=== PATIENT | female | born 1995 | race Caucasian/White ===

== ENCOUNTER 2018-03-15 21:00 | Emergency (ER) | payer SELFPAY ==
[2018-03-15 21:11] VITALS: BMI 27.4
--- NOTE | 2018-03-15 21:16 | ED PDOC ---
Arrival/HPI - General Time Seen by Provider: 03/15/18 21:04 Historian: Patient, Parent - History of Present Illness Narrative History of Present Illness (Text): 03/15/18 21:12 22 year old female, whose past medical history includes bipolar disorder, presents to the Emergency department by EMS for Suicidal Ideation for the past week. As per mother, patient was recently in [place] and was fine, but once she left she began feeling depressed due to relationship issues with her boyfriend. Mother states patient reportedly said multiple times that she wanted to kill herself. Patient denies any fevers, chills, nausea, vomiting, diarrhea, back pain, neck pain, urinary symptoms, headache, dizziness, homicidal Ideation, auditory/visual hallucinations, or any other complaint. Concreting Supervisor: Dr. Lauren Lyons Time/Duration: 1 week Symptom Onset: Gradual Symptom Course: Unchanged Context: Home Past Medical History - Provider Review Nursing Documentation Reviewed: Yes - Travel History Have you recently traveled outside US w/in the past 3 mons?: Yes Family/Social History - Physician Review Nursing Documentation Reviewed: Yes Family/Social History: No Known Family HX Allergies/Home Meds Allergies/Adverse Reactions: Allergies No Known Allergies Allergy (Verified 03/15/18 21:10) Home Medications: Home Meds Medication Instructions Recorded Confirmed Aripiprazole [Abilify] 30 mg PO DAILY 03/15/18 03/15/18 Benztropine Mesylate 0.5 mg PO BID 03/15/18 03/15/18 lamoTRIgine [LaMICtal] 2 tab PO DAILY 03/15/18 03/15/18 Review of Systems - Physician Review All systems were reviewed & negative as marked: Yes - Review of Systems Constitutional: absent: Fevers, Other ([place]) Gastrointestinal: absent: Diarrhea, Nausea, Vomiting Genitourinary Female: absent: Dysuria, Frequency, Hematuria Musculoskeletal: absent: Back Pain, Neck Pain Neurological: absent: Headache, Dizziness Psychiatric: Suicidal Ideation. absent: Other (homicidal Ideation, auditory/ visual hallucinations) Physical Exam Vital Signs Reviewed: Yes Vital Signs Temp Pulse Resp BP Pulse Ox 03/15/18 23:03 69 18 105/63 98 03/15/18 21:53 98.3 F 91 H 15 98 03/15/18 21:13 98 H 24 98 Temperature: Afebrile Pulse: Regular Respiratory Rate: Normal Appearance: Positive for: Well-Appearing, Non-Toxic Pain Distress: None Mental Status: Positive for: Alert and Oriented X 3 Finger Stick Blood Glucose: 72 - Systems Exam Head: Present: Atraumatic, Normocephalic Pupils: Present: PERRL Extroacular Muscles: Present: EOMI Conjunctiva: Present: Normal Mouth: Present: Moist Mucous Membranes Neck: Present: Normal Range of Motion Respiratory/Chest: Present: Clear to Auscultation, Good Air Exchange. No: Respiratory Distress, Accessory Muscle Use Cardiovascular: Present: Regular Rate and Rhythm, Normal S1, S2. No: Murmurs Abdomen: No: Tenderness, Distention, Peritoneal Signs Back: Present: Normal Inspection Upper Extremity: Present: Normal Inspection. No: Cyanosis, Edema Lower Extremity: Present: Normal Inspection. No: Edema Neurological: Present: GCS=15, CN II-XII Intact, Speech Normal Skin: Present: Warm, Dry, Normal Color. No: Rashes Psychiatric: Present: Alert, Oriented x 3, Normal Insight, Normal Concentration , Other (Flat Affect). No: Normal Affect Medical Decision Making ED Course and Treatment: 03/15/18 21:12 Impression: 22 year old female presents for Suicidal Ideation for the past week. Plan: -- EKG -- Labs -- Chest X-ray -- Urinalysis, HCG, Qualit Urine. -- Reassess and disposition Progress Notes: 03/15/18 21:40 EKG shows NSR at 86 BPM. Normal EKG. Interpreted by me. 03/16/18 02:40 CXR Impression: As read by me, no acute process. 03/16/18 02:45 Patient was seen and evaluated by PES. Cleared by PES for discharge. Patient in agreement to follow up with [facility]. On re-evaluation, patient feels better and is in no acute distress. I have discussed the results and plan with the patient, who expresses understanding. Patient in agreement with plan to be discharged home. Patient is stable for discharge. Patient was instructed to follow up with physician or return if symptoms worsen or new concerning symptoms arise. - Lab Interpretations Lab Results: 03/15/18 21:25 03/15/18 21:25 Lab Results 03/15/18 23:30: Urine Opiates Screen Negative, Urine Methadone Screen Negative, Ur Barbiturates Screen Negative, Ur Phencyclidine Scrn Negative, Ur Amphetamines Screen Negative, U Benzodiazepines Scrn Negative, U Oth Cocaine Metabols Negative, U Cannabinoids Screen Negative 03/15/18 23:30: Urine Color Yellow, Urine Appearance Clear, Urine pH 6.5, Ur Specific [place] 1.025, Urine Protein Negative, Urine Glucose (UA) Negative, Urine Ketones Negative, Urine Blood Negative, Urine Nitrate Negative, Urine Bilirubin Negative, Urine Urobilinogen 0.2, Ur Leukocyte Esterase Trace H, Urine RBC 0 - 2, Urine WBC 1 - 3, Ur Epithelial Cells 4 - 5, Urine Bacteria Trace, Urine HCG, Qual Negative 03/15/18 21:25: Alcohol, Quantitative < 10 03/15/18 21:25: WBC 4.0 L, RBC 5.29, Hgb 12.7, Hct 39.8, MCV 75.2 L, MCH 24.0 L , MCHC 31.9, RDW 14.0, Plt Count 212, MPV 11.2 H 03/15/18 21:25: Sodium 143, Potassium 4.0, Chloride 104, Carbon Dioxide 26, Anion Gap 17, BUN 12, Creatinine 0.8, Est GFR ( Amer) > 60, Est GFR (Non- Af Amer) > 60, Random Glucose 83, Calcium 9.4, Total Bilirubin 0.4, AST 39 H, ALT 60 H, Alkaline Phosphatase 92, Total Protein 8.7 H, Albumin 4.2, Globulin 4.5, Albumin/Globulin Ratio 0.9 L 03/15/18 21:05: POC Glucose (mg/dL) 72 I have reviewed the lab results: Yes - RAD Interpretation Radiology Orders: 03/15/18 21:11 CHEST PORTABLE [RAD] Stat - EKG Interpretation Interpreted by ED Physician: Yes Type: 12 lead EKG - Medication Orders Current Medication Orders: Discontinued Medications Acetaminophen (Tylenol 325mg Tab) 650 mg PO STAT STA Stop: 03/15/18 23:15 Last Admin: 03/15/18 23:25 Dose: 650 mg - Scribe Statement The provider has reviewed the documentation as recorded by the Gonzalez Archer Provider Maritzaibe Attestation: All medical record entries made by the Gonzalez were at my direction and personally dictated by me. I have reviewed the chart and agree that the record accurately reflects my personal performance of the history, physical exam, medical decision making, and the department course for this patient. I have also personally directed, reviewed, and agree with the discharge instructions and disposition. Disposition/Present on Arrival - Present on Arrival Any Indicators Present on Arrival: No - Disposition Have Diagnosis and Disposition been Completed?: Yes Diagnosis: Depression Disposition: HOME/ ROUTINE Disposition Time: 02:43 Patient Plan: Discharge Patient Problems: Current Active Problems Problem Status Onset Depression Acute Condition: GOOD Discharge Instructions (ExitCare): Depression, Adult (DC) Additional Instructions: Follow up at [facility]. Referrals: [facility] - Follow up with primary
[2018-03-15 21:48] LABS: HEMOGLOBIN 12.7 g/dL (12.0-16.0); MEAN CELL VOLUME 75.2 fl (80.0-105.0); MEAN CORPUSCULAR HGB CONC 31.9 g/dl (31.0-37.0); MEAN PLATELET VOLUME 11.2 fl (7.0-11.0); RBC 5.29 10^6/uL (3.5-6.1)
[2018-03-15 21:53] LABS: ALB/GLOB RATIO 0.9 (1.1-1.8); ALBUMIN 4.2 g/dL (3.0-4.8); ALT/SGPT 60 U/L (7-56); AST/SGOT 39 U/L (14-36); BLOOD UREA NITROGEN 12 mg/dL (7-21); CALCIUM 9.4 mg/dL (8.4-10.5); GFR AFRICAN-AMERICAN > 60; GFR NON-AFRICAN AMERICAN > 60
[2018-03-15 22:00] VITALS: TEMP 98.3
[2018-03-15 23:57] LABS: PH,URINE 6.5 (4.7-8.0); URINE BILIRUBIN NEGATIVE (NEGATIVE); URINE BLOOD NEGATIVE (NEGATIVE); URINE GLUCOSE (UA) NEGATIVE (NEGATIVE); URINE LEUKOCYTE ESTERASE TRACE Leu/uL (NEGATIVE); URINE PROTEIN NEGATIVE mg/dL (<30 mg/dL); URINE UROBILINOGEN 0.2 E.U./dL (<1 E.U./dL)
[2018-03-16 00:03] LABS: HCG,QUALITATIVE URINE NEGATIVE (NEGATIVE); URINE APPEARANCE CLEAR (CLEAR); URINE COLOR YELLOW (YELLOW)
[2018-03-16 00:11] LABS: URINE BACTERIA TRACE (NEG); URINE RBC 0 - 2 /hpf (0-2)
[2018-03-16 00:30] LABS: BARBITURATES, UR NEGATIVE (NEGATIVE); BENZODIAZEPINES, UR NEGATIVE (NEGATIVE); OPIATES, UR NEGATIVE (NEGATIVE); PHENCYCLIDINE, UR NEGATIVE (NEGATIVE)
[2018-03-16 03:06] VITALS: BP 124/70; PULSE 69; RESP 12
[2018-03-16 03:07] VITALS: O2SAT 100
--- NOTE | 2018-03-16 08:04 | RAD ---
Date of service: 03/16/2018 HISTORY: medical clearance COMPARISON: No prior. FINDINGS: LUNGS: No active pulmonary disease. PLEURA: No significant pleural effusion identified, no pneumothorax apparent. CARDIOVASCULAR: Normal. OSSEOUS STRUCTURES: No significant abnormalities. VISUALIZED UPPER ABDOMEN: Normal. OTHER FINDINGS: None. IMPRESSION: No active disease.
--- NOTE | 2018-03-16 09:46 | CARD ---
APPROVED REPORT Date of service: 03/15/2018 EKG Measurement Heart [id number] ID [id number] <Conclusion> Normal sinus rhythm Normal ECG
== END 2018-03-16 03:04 | disposition home or self-care (01) ==
LOC: ED 21:00
DX: F32.9 Major depressive disorder, single episode, unspecified (principal)
CPT/HCPCS: 71045; 80053; 81001; 82948; 84703; 85027; 87086; 90791; 93005; 99285; G0480

== ENCOUNTER 2018-10-06 23:39 | Inpatient (IN) | payer MEDICAID, OTHER ==
[2018-10-06 23:52] VITALS: BMI 26.6
[2018-10-07] MEDS ORDERED: Sodium Chloride 0.9% 1,000 ML IV STA (00:04)
--- NOTE | 2018-10-07 00:16 | ED PDOC ---
Arrival/HPI - General Historian: Patient - History of Present Illness Narrative History of Present Illness (Text): 10/07/18 00:13 23-year-old female with a history of bipolar disorder and history of "seizures" presents today for psychiatric evaluation. Per family member the patient was talking on the phone and got into an argument with her boyfriend and had a "seizure". Patient states that she was watching a video on her phone and suddenly began to feel a tightness in the chest and it was going throughout her entire body. patient states she then felt as if she stiffened up. Patient states she then felt like her body was shaking. Patients mother states that she saw this happen and called 911. Patient states this is happened multiple times in the past and after these events occur she has a lot more energy than she normally would have. Patient denies headache dizziness or weakness. Denies chest pain or shortness of breath. Denies abdominal pain. No nausea or vomiting. Patient denies recent illness. Patient states she was seen by her psychiatrist yesterday and was told that she needed to have ECT treatments again. Patient states these treatments have helped her in the past. Patient denies suicidal or homicidal ideation. No other complaints Time/Duration: 1 hour <Alisha Terry - Last Filed: 10/07/18 01:47> <Ruperto Mccord - Last Filed: 10/07/18 03:45> - General Chief Complaint: Psychiatric Evaluation Time Seen by Provider: 10/06/18 23:52 Past Medical History - Provider Review Nursing Documentation Reviewed: Yes - Travel History Have you recently traveled outside [place] w/in the past 3 mons?: No - Tetanus Immunization Tetanus Immunization: Unknown - Cardiac Hx Cardiac Disorders: No Hx Hypertension: No - Pulmonary Hx Tuberculosis: No - Neurological HX Cerebrovascular Accident: No Hx Seizures: Yes - Endocrine/Metabolic Hx Endocrine Disorders: Yes Hx Diabetes Mellitus Type 2: Yes - Hematological/Oncological Hx Cancer: No - Genitourinary/Gynecological Hx Sexually Transmitted Diseases: No - Psychiatric Hx Psychophysiologic Disorder: Yes Hx Bipolar Disorder: Yes (7 years) Hx Depression: Yes Hx Substance Use: No (denies) - Anesthesia Hx Anesthesia: No <Alisha Terry - Last Filed: 10/07/18 01:47> Family/Social History - Physician Review Nursing Documentation Reviewed: Yes Family/Social History: Unknown Family HX Smoking Status: Unknown If Ever Smoked Hx Alcohol Use: No (denies) Hx Substance Use: No (denies) <Alisha Terry - Last Filed: 10/07/18 01:47> Allergies/Home Meds <Alisha Terry - Last Filed: 10/07/18 01:47> <YayaRuperto - Last Filed: 10/07/18 03:45> Allergies/Adverse Reactions: Allergies No Known Allergies Allergy (Verified 03/15/18 21:10) Home Medications: Home Meds Medication Instructions Recorded Confirmed Aripiprazole [Abilify] 30 mg PO DAILY 03/15/18 03/15/18 Benztropine Mesylate 0.5 mg PO BID 03/15/18 03/15/18 lamoTRIgine [LaMICtal] 2 tab PO DAILY 03/15/18 03/15/18 Review of Systems - Review of Systems Constitutional: absent: Fatigue, Fevers ENT: absent: Sore Throat, Sinus Congestion Respiratory: absent: SOB, Cough Cardiovascular: absent: Chest Pain, Palpitations Gastrointestinal: absent: Abdominal Pain, Constipation, Diarrhea, Nausea, Vomiting Genitourinary Female: absent: Dysuria, Frequency, Hematuria Musculoskeletal: absent: Arthralgias, Back Pain, Neck Pain Skin: absent: Rash, Pruritis Neurological: absent: Headache, Dizziness Psychiatric: Other (hx of bipolar disorder). absent: Suicidal Ideation <Alisha Terry - Last Filed: 10/07/18 01:47> Physical Exam Vital Signs Reviewed: Yes Vital Signs Temp Pulse Resp BP Pulse Ox 10/06/18 23:48 98.6 F 77 18 139/79 98 Temperature: Afebrile Blood Pressure: Normal Pulse: Regular Respiratory Rate: Normal Appearance: Positive for: Well-Appearing, Non-Toxic, Comfortable Pain Distress: None Mental Status: Positive for: Alert and Oriented X 3 Finger Stick Blood Glucose: 99 - Systems Exam Head: Present: Atraumatic Pupils: Present: PERRL Extroacular Muscles: Present: EOMI Conjunctiva: Present: Normal Mouth: Present: Moist Mucous Membranes Neck: Present: Normal Range of Motion, Trachea Midline. No: MIDLINE TENDERNESS, Paraspinal Tenderness Respiratory/Chest: Present: Clear to Auscultation, Good Air Exchange. No: Respiratory Distress, Accessory Muscle Use Cardiovascular: Present: Regular Rate and Rhythm, Normal S1, S2. No: Murmurs Abdomen: No: Tenderness, Distention, Rebound, Guarding Upper Extremity: Present: Normal ROM Lower Extremity: Present: Normal ROM Neurological: Present: GCS=15, Speech Normal Skin: Present: Warm, Dry, Normal Color. No: Rashes Psychiatric: Present: Alert, Oriented x 3 <Alisha Terry - Last Filed: 10/07/18 01:47> Vital Signs Temp Pulse Resp BP Pulse Ox 10/06/18 23:48 98.6 F 77 18 139/79 98 <Ruperto Mccord - Last Filed: 10/07/18 03:45> Medical Decision Making ED Course and Treatment: 10/07/18 00:51 Patient is nontoxic well-appearing in no distress vital signs are stable. pt claims to have had a seizure, but is alert and oriented without postictal state. pt is alert and oriented and the Patient was able to identify each symptom as it progressed during her "seizure". PT is requesting to speak to a psychiatrist. There is a question of whether this patient has a hx of seizures or is on carbamazepine for psychosis/Bipolar disorder. Patient states she has never seen a neurologist and her psychiatrist gives her the prescription for carbamazepine. CBC WNL CMP WNL Tylenol WNL Salicylate WNL Alcohol level WNL Urine drug screen wnl UA; wnl cxr: wnl ekg: Normal sinus rhythm at 80 bpm normal axis normal intervals no ST elevations Head CT; pending pt is medically cleared for PES evaluation Patient was seen and evaluated by PES screener: oskar 10/07/18 01:43 case signed out to dr. mccord pending PES eval/ ct results and disposition. - RAD Interpretation Radiology Orders: 10/07/18 00:04 HEAD W/O CONTRAST [CT] Stat 10/07/18 00:05 CHEST PORTABLE [RAD] Stat - Medication Orders Current Medication Orders: Sodium Chloride (Sodium Chloride 0.9%) 1,000 mls @ 999 mls/hr IV .Q1H1M STA Stop: 10/07/18 01:04 <Alisha Terry - Last Filed: 10/07/18 01:47> ED Course and Treatment: 10/07/18 02:23 CT Head: Normal size of the ventricles and extra-axial spaces for the patient's age. Normal white matter tracts of the supratentorial brain. Normal basal ganglia and thalami. Normal brainstem. Normal cerebellum. There is no demonstrated extra-axial, intraparenchymal, or intraventricular hemorrhage. There are no findings of an acute ischemic infarction. Normal calvarium. There is no demonstrated fracture. Normal soft tissue structures. Mild chronic mucosal inflammatory changes of the maxillary sinuses and ethmoid air cells. Normal remaining visualized paranasal sinuses. IMPRESSION: Normal unenhanced CT scan of the brain. Electronically signed on Oct 07, 2018 2:20:01 AM EST by: Susu Agarwal M.D., Certified by ABR, MSK, Neuroradiology 10/07/18 03:42 Pt seen and evaluated by JORDI Camacho, who discussed case with psychiatrist alternative medicine practitioner. [facility] for bipolar disorder under Dr. Tilley's service. - Lab Interpretations Lab Results: Total Bilirubin 0.2 mg/dL (0.2-1.3) 10/07/18 00:26 AST 24 U/L (14-36) 10/07/18 00:26 ALT 24 U/L (7-56) 10/07/18 00:26 Alkaline Phosphatase 80 U/L (38-126) 10/07/18 00:26 Total Protein 7.8 g/dL (5.8-8.3) 10/07/18 00:26 Albumin 3.9 g/dL (3.0-4.8) 10/07/18 00:26 Globulin 3.9 gm/dL 10/07/18 00:26 Albumin/Globulin Ratio 1.0 (1.1-1.8) L 10/07/18 00:26 Urine Color Yellow (YELLOW) 10/07/18 00:26 Urine Appearance Clear (CLEAR) 10/07/18 00:26 Urine pH 7.5 (4.7-8.0) 10/07/18 00:26 Ur Specific [place] 1.025 (1.005-1.035) 10/07/18 00:26 Urine Protein Negative mg/dL (<30 mg/dL) 10/07/18 00:26 Urine Glucose (UA) Negative mg/dL (NEGATIVE) 10/07/18 00:26 Urine Ketones Negative mg/dL (NEGATIVE) 10/07/18 00:26 Urine Blood Negative (NEGATIVE) 10/07/18 00:26 Urine Nitrate Negative (NEGATIVE) 10/07/18 00:26 Urine Bilirubin Negative (NEGATIVE) 10/07/18 00:26 Urine Urobilinogen 0.2 E.U./dL (<1 E.U./dL) 10/07/18 00:26 Ur Leukocyte Esterase Negative E[place]/uL (NEGATIVE) 10/07/18 00:26 - RAD Interpretation Radiology Orders: 10/07/18 00:04 HEAD W/O CONTRAST [CT] Stat 10/07/18 00:05 CHEST PORTABLE [RAD] Stat Barrel Cleaner: Radiologist - Medication Orders Current Medication Orders: Discontinued Medications Sodium Chloride (Sodium Chloride 0.9%) 1,000 mls @ 999 mls/hr IV .Q1H1M STA Stop: 10/07/18 01:04 Last Admin: 10/07/18 00:30 Dose: 999 mls/hr eMAR Start Stop Document 10/07/18 00:30 AD (Rec: 10/07/18 01:41 AD [id number]) Intravenous Solution Start Date 10/07/18 Start Time 00:30 <Ruperto Mccord - Last Filed: 10/07/18 03:45> - PA / HAND ROLLER ENGRAVER / Resident Statement GREGORY has reviewed & agrees with the documentation as recorded. GREGORY has examined the patient and agrees with the treatment plan. <Ruperto Mccord - Last Filed: 10/07/18 03:45> Disposition/Present on Arrival - Present on Arrival Any Indicators Present on Arrival: No History of DVT/PE: No History of Uncontrolled Diabetes: No Urinary Catheter: No History of Decub. Ulcer: No History Surgical Site Infection Following: None - Disposition Have Diagnosis and Disposition been Completed?: Yes Disposition Time: 01:43 <Alisha Terry - Last Filed: 10/07/18 01:47> - Present on Arrival Any Indicators Present on Arrival: No History of DVT/PE: No History of Uncontrolled Diabetes: No Urinary Catheter: No History of Decub. Ulcer: No History Surgical Site Infection Following: None - Disposition Have Diagnosis and Disposition been Completed?: Yes Disposition Time: 03:45 Patient Plan: Admission <Ruperto Mccord - Last Filed: 10/07/18 03:45> - Disposition Diagnosis: Bipolar disorder Disposition: HOSPITALIZED Patient Problems: Current Active Problems Problem Status Onset Bipolar disorder Acute Condition: STABLE Referrals: Ash Mccain [Primary Care Provider] - Follow up with primary Forms: [employer] (Bulgarian)
[2018-10-07 00:35] LABS: BASO # 0.03 K/mm3 (0.0-2.0); BASO % 0.4 % (0.0-3.0); EOS # 0.3 (0.0-0.7); HEMOGLOBIN 12.1 g/dL (12.0-16.0); LYMPH # 2.5 (1.2-3.4); LYMPH % 29.2 % (22.0-35.0); MEAN CORPUSCULAR HEMOGLOBIN 24.6 pg (25.0-35.0); MEAN CORPUSCULAR HGB CONC 30.9 g/dl (31.0-37.0); MEAN PLATELET VOLUME 10.9 fl (7.0-11.0); MONO # 0.5 (0.1-0.6); MONO % 5.4 % (1.0-6.0); RBC 4.92 10^6/uL (3.5-6.1); RED CELL DISTRIBUTION WIDTH 13.6 % (11.5-14.5); WHITE BLOOD COUNT 8.5 10^3/uL (4.5-11.0)
[2018-10-07 00:48] LABS: MEAN CELL VOLUME 79.7 fl (80.0-105.0)
[2018-10-07 00:50] LABS: PH,URINE 7.5 (4.7-8.0); URINE BILIRUBIN NEGATIVE (NEGATIVE); URINE BLOOD NEGATIVE (NEGATIVE); URINE GLUCOSE (UA) NEGATIVE (NEGATIVE); URINE LEUKOCYTE ESTERASE NEGATIVE Leu/uL (NEGATIVE); URINE PROTEIN NEGATIVE mg/dL (<30 mg/dL); URINE UROBILINOGEN 0.2 E.U./dL (<1 E.U./dL)
[2018-10-07 00:51] LABS: URINE APPEARANCE CLEAR (CLEAR); URINE COLOR YELLOW (YELLOW)
[2018-10-07 00:53] LABS: ACETAMINOPHEN < 10.0 ug/ml (10.0-20.0); SALICYLATE < 1 mg/dL (2.0-20.0)
[2018-10-07 00:55] LABS: ALBUMIN 3.9 g/dL (3.0-4.8); ALT/SGPT 24 U/L (7-56); AST/SGOT 24 U/L (14-36); BLOOD UREA NITROGEN 13 mg/dL (7-21); CALCIUM 9.1 mg/dL (8.4-10.5); GFR NON-AFRICAN AMERICAN > 60
[2018-10-07 01:30] LABS: BARBITURATES, UR NEGATIVE (NEGATIVE); BENZODIAZEPINES, UR NEGATIVE (NEGATIVE); OPIATES, UR NEGATIVE (NEGATIVE); PHENCYCLIDINE, UR NEGATIVE (NEGATIVE)
[2018-10-07] MEDS ORDERED: Magnesium Hydroxide Susp 30 ml UD PO PRN (04:41)
[2018-10-07] MEDS ORDERED: Alum-Mag Hydrox-Simethicone Susp (30 mL) PO PRN (04:41)
[2018-10-07 06:16] VITALS: O2SAT 100
--- NOTE | 2018-10-07 06:47 | PCM.BM ---
<Gabriel Kimball C - Last Filed: 10/07/18 06:44> Treatment Plan Problems - Problems identified on initial assessmt INEFFECTIVE COPING Date Initiated: 10/07/18 Time Initiated: 06:00 Assessment reference: NA Status: Active Priority: 1 ALTERED SLEEPING PATTERN Date Initiated: 10/07/18 Time Initiated: 06:00 Assessment reference: NA Status: Active Priority: 2 AGITATED BEHAVIOR Date Initiated: 10/07/18 Time Initiated: 06:00 Assessment reference: NA Status: Active Priority: 3 Treatment assets and liabiliti Patient Assests: educated, self-reliant, ADL independent, good support system, negotiates basic needs, financial stabiity, cognitively intact Patient Liabilities: relationship conflicts, medical problems - Milieu Protocol Maintain good personal hygiene: every other day Encourage regular showers, every shift Remind patient to perform daily oral care, every shift Assist patient to perform ADL's Maintain personal safety: daily Monitor environment for contraband/sharps, every other day Educate patient to report safety concerns to staff, every other day Monitor environment for contraband/sharps Medication safety: Monitor for expected outcome, potential side effects: every other day, Assess barriers to learning: every other day, Assess readiness for medication education: every other day Family Contact Family involvement: Family/SO is involved Family contact: Patient agrees to contact Discharge/Continuing Care - Education Needs Education Needs: Patient Medication, Patient Diagnosis/Disease Process, Patient Coping Skills, Patient Uses of Medical Equipment, Patient Health Practices/Safety - Discharge Discharge Criteria: Tolerates medication w/o severe side effects, Free of Suicidal thoughts, Free of agitation, Normal sleep pattern <Maty Tilley A - Last Filed: 10/07/18 14:34> - Diagnosis (1) Bipolar disorder Status: Acute Interventions: 10/07/18 14:34 Psychoeducation Psychopharmacology/adjustment of medications as needed/ monitoring possible side effects Monitor blood level of mood stabilizers Evaluate pt on daily basis Compliance with medications and follow up appointments Suicide and homicide risk assessment and prevention, coping strategies, safety plan Relapse prevention Reduction of symptoms Improve functional status Family involvement As outpatient: cognitive behavioral therapy ECT possible <Lakesha Lopez Y - Last Filed: 10/08/18 11:50> Family Contact Family contact: Patient agrees to contact Family contact name: Ruddy Quintero([phone]) mother Family contacted how many times per week?: 2 <Lizeth Roldan - Last Filed: 10/08/18 15:55>
--- NOTE | 2018-10-07 08:36 | CT ---
Date of service: 10/07/2018 PROCEDURE: CT HEAD WITHOUT CONTRAST. HISTORY: hx of seizures/ ? seizure at home COMPARISON: None available. TECHNIQUE: Axial computed tomography images were obtained through the head/brain without intravenous contrast. Radiation dose: Total exam DLP = 803.84 mGy-cm. This CT exam was performed using one or more of the following dose reduction techniques: Automated exposure control, adjustment of the mA and/or kV according to patient size, and/or use of iterative reconstruction technique. FINDINGS: HEMORRHAGE: No intracranial hemorrhage. BRAIN: No mass effect or edema. No atrophy or chronic microvascular ischemic changes. VENTRICLES: Unremarkable. No hydrocephalus. CALVARIUM: Unremarkable. PARANASAL SINUSES: Minimal chronic ethmoid sinusitis. MASTOID AIR CELLS: Unremarkable as visualized. No inflammatory changes. OTHER FINDINGS: None. IMPRESSION: No intracranial mass, hemorrhage or evidence of acute infarct. Minimal chronic ethmoid sinusitis. Otherwise unremarkable examination The preliminary findings for this examination were reported by [facility] Radiology at 2:20 a.m. on 10/07/2018. There is concurrence of this report with the preliminary findings.
[2018-10-07 08:47] LABS: GLUCOSE,FASTING 90 mg/dL (65-110); HDL CHOLESTEROL 32 mg/dL (29-60)
[2018-10-07 08:58] LABS: LDL CHOLESTEROL 84 mg/dL (0-129)
--- NOTE | 2018-10-07 10:14 | RAD ---
Date of service: 10/07/2018 HISTORY: Pes eval COMPARISON: 03/16/2018 FINDINGS: LUNGS: No active pulmonary disease. PLEURA: No significant pleural effusion identified, no pneumothorax apparent. CARDIOVASCULAR: No aortic atherosclerotic calcification present. Normal cardiac size. No pulmonary vascular congestion. OSSEOUS STRUCTURES: No significant abnormalities. VISUALIZED UPPER ABDOMEN: Normal. OTHER FINDINGS: None. IMPRESSION: No active disease.
--- NOTE | 2018-10-07 14:30 | PCM.PSYCH ---
Initial Psychiatric Evaluation - Initial Psychiatric Evaluation Type of Admission: Voluntary Legal Status: Capacity (Patient has a capacity to sign consent for treatment) Chief Complaint (in patient's own words): "I do not want to be here, you have to discharge me immediately, transfer me on the medical floor...." Patient's Reaction to Hospitalization: Patient was admitted to the psychiatric inpatient unit for evaluation and stabilization of mood symptoms, as per emergency room documentation patient wanted to be on ECT treatment for her bipolar disorder as well as seizure disorder. History of Present Illness and Precipitating Events: Shortly, patient is 23-year-old [place] female with a history of bipolar disorder and history of "seizures", was brought in by her family for evaluation of possible seizure episode, as per report patient was admitted to the psychiatric inpatient unit for evaluation and stabilization of mood symptoms as well as possible ECT treatment. This travel writer attempted to speak to the patient at the morning time in her room together with medical student. Patient presented to be emotionally labile, agitated, restless, pressured and loud speech, patient said that she wants to be discharged immediately, this travel writer educated patient about unit rules and regulations, patient was not able to understand. Patient reported that she had ECT treatment in the past in [place] "for my mood and seizures." Patient reported that she was feeling better after ECT treatments. Patient was fixated on outpatient ECT treatment, not allowing this travel writer to explain about the importance to be evaluated by neurologist as well as medical team, Later on patient became very agitated, was not able to calm down, was screaming, yelling was not able follow redirections, refused to have medication, patient posed an imminent danger to self, required to have IM of Ativan 2mg stat. Patient calmed down, slept for couple of hours. As per report from the emergency room patient had "seizure" after having an argument with her boyfriend over the phone. Patient was making statements such as chest tightness, blood clot in her chest,, was cleared for psych admission. Patient was seen by medical team in the emergency room, was cleared for psych admission. as per ED report, patient's psychiatrist recommended patient to have ECT treatment again, which was very helpful in the past. Patient denied hearing voices, denied seeing things, denied paranoid ideations. Patient denies using drugs, denied alcohol consumption, denied smoking. Medical history: Questionable seizure disorder, obesity Past psychiatric history: Outpatient psychiatrist Dr. Eloy Lau in [place]. Patient indicates th at she does not have a neurologist for her seizures. Long history of bipolar disorder and history of ECT treatment x4, last year in the [place]. Patient reported being compliant with psychotropic medications. [phone] pharmacy contacted pt was on following meds prescribed by Lamictal 25mg po bid filled in June carbamazepine 200mg daily benztropine 0.5mg bid 90days supply abilify 30mg po daily lst march 2018 mother: Ruddy Quintero [phone], awaiting for written consent from the pt to call for collaterals 10/07/18 00:26 10/07/18 00:26 Lab Results 10/07/18 08:30: TSH 3rd Generation 3.77 10/07/18 08:30: Fasting Glucose 90, Triglycerides 84, Cholesterol 134, LDL Cholesterol Direct 84, HDL Cholesterol 32 10/07/18 00:26: Carbamazepine < 3 L 10/07/18 00:26: Alcohol, Quantitative < 10 10/07/18 00:26: Salicylates < 1 L, Acetaminophen < 10.0 L 10/07/18 00:26: Urine Opiates Screen Negative, Urine Methadone Screen Negative, Ur Barbiturates Screen Negative, Ur Phencyclidine Scrn Negative, Ur Amphetamines Screen Negative, U Benzodiazepines Scrn Negative, U Oth Cocaine Metabols Negative, U Cannabinoids Screen Negative 10/07/18 00:26: Sodium 139, Potassium 3.8, Chloride 108 H, Carbon Dioxide 24, Anion Gap 11, BUN 13, Creatinine 0.6 L, Est GFR ( Amer) > 60, Est GFR (Non-Af Amer) > 60, Random Glucose 96, Calcium 9.1, Total Bilirubin 0.2, AST 24, ALT 24, Alkaline Phosphatase 80, Total Protein 7.8, Albumin 3.9, Globulin 3.9, Albumin/Globulin Ratio 1.0 L 10/07/18 00:26: Urine Color Yellow, Urine Appearance Clear, Urine pH 7.5, Ur Specific [place] 1.025, Urine Protein Negative, Urine Glucose (UA) Negative, Urine Ketones Negative, Urine Blood Negative, Urine Nitrate Negative, Urine Bilirubin Negative, Urine Urobilinogen 0.2, Ur Leukocyte Esterase Negative 10/07/18 00:26: WBC 8.5, RBC 4.92, Hgb 12.1, Hct 39.2, MCV 79.7 L D, MCH 24.6 L, MCHC 30.9 L, RDW 13.6, Plt Count 235, MPV 10.9, Neut % (Auto) 62.0, Lymph % (Auto) 29.2, [place] % (Auto) 5.4, Eos % (Auto) 3.0, Baso % (Auto) 0.4, Lymph # (Auto) 2.5, [place] # (Auto) 0.5, Eos # (Auto) 0.3, Baso # (Auto) 0.03, Absolute Neuts (auto) 5.24 10/06/18 23:49: POC Glucose (mg/dL) 99 Vital Signs Temp Pulse Resp BP Pulse Ox 10/07/18 07:00 97.7 F 84 20 125/91 H 10/07/18 06:16 20 10/07/18 04:30 80 18 128/72 100 10/07/18 03:40 75 18 125/75 100 10/06/18 23:48 98.6 F 77 18 139/79 98 The patient failed the outpatient lower level of care: Yes Current Medications: Active Medications Generic Name Dose Route Start Last Admin Trade Name Freq PRN Reason Stop Dose Admin Acetaminophen 650 mg 10/07/18 04:41 Tylenol 325mg Tab PO Q4H PRN Pain, Mild (1-3) Al Hydrox/Mg Hydrox/Simethicone 30 ml 10/07/18 04:41 Maalox Plus 30 Ml PO DAILY PRN Upset Stomach Magnesium Hydroxide 30 ml 10/07/18 04:41 Milk Of Magnesia PO DAILY PRN Constipation Medications resumed, Abilify resumed Present on Admission - Present on Admission Any Indicators Present on Admission: No Review of Systems - Review of Systems Systems not reviewed;Unavailable: Acuity of Condition - Constitutional Constitutional: As Per HPI - EENT Eyes: As Per HPI Ears: As Per HPI Nose/Mouth/Throat: As Per HPI - Breasts Breasts: As Per HPI - Cardiovascular Cardiovascular: As Per HPI - Respiratory Respiratory: As Per HPI - Gastrointestinal Gastrointestinal: As Per HPI - Genitourinary Genitourinary: As Per HPI - Reproductive: Female Reproductive:Female: As Per HPI - Menstruation Menstruation: As Per HPI - Musculoskeletal Musculoskeletal: As Per HPI - Integumentary Integumentary: As Per HPI - Neurological Neurological: As Per HPI - Psychiatric Psychiatric: As Per HPI - Endocrine Endocrine: As Per HPI - Hematologic/Lymphatic Hematologic: As Per HPI Past Patient History - Past Psychiatric History Previous Treatment History: Inpatient Prior Professional Help: See HPI Prior Psychiatric Treatment: See HPI At what hospital: See HPI Duration: See HPI Nature of Treatment: See HPI Explanation of prior treatment: See HPI - PSYCHIATRIC Hx Bipolar Disorder: Yes Hx Substance Use: No - Tetanus Immunizations Tetanus Immunization: Unknown - CARDIAC Hx Cardiac Disorders: No Hx Hypertension: No - PULMONARY Hx Respiratory Disorders: No Hx Tuberculosis: No - NEUROLOGICAL Hx Neurological Disorder: No HX Cerebrovascular Accident: No Hx Seizures: Yes - HEENT Hx HEENT Problems: No - RENAL Hx Chronic Kidney Disease: No - ENDOCRINE/METABOLIC Hx Endocrine Disorders: Yes Hx Diabetes Mellitus Type 2: Yes - HEMATOLOGICAL/ONCOLOGICAL Hx Cancer: No - INTEGUMENTARY Hx Dermatological Problems: No - MUSCULOSKELETAL/RHEUMATOLOGICAL Hx Musculoskeletal Disorders: No - GASTROINTESTINAL Hx Gastrointestinal Disorders: No - GENITOURINARY/GYNECOLOGICAL Hx Genitourinary Disorders: No Hx Sexually Transmitted Disorders: No - SURGICAL HISTORY Hx Surgeries: No (denies) - ANESTHESIA Hx Anesthesia: No - Medical/Surgical History Reviewed & confirmed: by wa Meds Allergies/Adverse Reactions: Allergies Allergy/AdvReac Type Severity Reaction Status Date / Time No Known Allergies Allergy Verified 10/07/18 06:11 Mental Status Examination - Personal Presentation Personal Presentation: Looks stated age - Affect Affect: Constricted (Angry), Flat - Motor Activity Motor Activity: Psychomotor Agitation - Reliability in Providing Information Reliability in Providing Information: Poor, due to alteration in thoughts, Poor, due to altered mood - Speech Speech: Tangential - Mood Mood: Depressed, Anxious - Formal Thought Process Formal Thought Process: Circumstantial - Hallucinations/Delusions Additional comments: Patient denied any psychotic symptoms - Obsessions/Compulsions Obsessions: None Compulsions: None - Cognitive Functions Orientation: Person, Place, Situation, Time Sensorium: Alert Attention/Concentration: Easily distracted Abstract Thinking: [place] Estimate of Intelligence: Below average Judgement: Intact, as evidence by: Insight regarding need for hospitalization - Risk Risk: Seizure, Self-mutilation, Diminished functioning - Strength & Assets Inventory Strength & Assets Inventory: Family support, Other (Relatively good physical health, no psychosis, no drugs) - Limitations Limitations: Other (Poor insight, emotional liability) Psychiatric Physical Exam - Physical Exam Reviewed and confirmed: Emergency Department Physical Exam Results - Vital Signs Recent Vital Signs: Last Vital Signs Temp 97.7 F 10/07/18 07:00 Pulse 84 10/07/18 07:00 Resp 20 10/07/18 07:00 BP 125/91 H 10/07/18 07:00 Pulse Ox 100 10/07/18 04:30 - Labs Result Diagrams: 10/07/18 00:26 10/07/18 00:26 Labs: Laboratory Results - last 24 hr 10/06/18 10/07/18 10/07/18 23:49 00:26 00:26 WBC 8.5 RBC 4.92 Hgb 12.1 Hct 39.2 MCV 79.7 L D MCH 24.6 L MCHC 30.9 L RDW 13.6 Plt Count 235 MPV 10.9 Neut % (Auto) 62.0 Lymph % (Auto) 29.2 [place] % (Auto) 5.4 Eos % (Auto) 3.0 Baso % (Auto) 0.4 Lymph # (Auto) 2.5 [place] # (Auto) 0.5 Eos # (Auto) 0.3 Baso # (Auto) 0.03 Absolute Neuts (auto) 5.24 Sodium Potassium Chloride Carbon Dioxide Anion Gap BUN Creatinine Est GFR ( Amer) Est GFR (Non-Af Amer) POC Glucose (mg/dL) 99 Random Glucose Calcium Total Bilirubin AST ALT Alkaline Phosphatase Total Protein Albumin Globulin Albumin/Globulin Ratio Urine Color Yellow Urine Appearance Clear Urine pH 7.5 Ur Specific [place] 1.025 Urine Protein Negative Urine Glucose (UA) Negative Urine Ketones Negative Urine Blood Negative Urine Nitrate Negative Urine Bilirubin Negative Urine Urobilinogen 0.2 Ur Leukocyte Esterase Negative Salicylates Urine Opiates Screen Urine Methadone Screen Acetaminophen Ur Barbiturates Screen Carbamazepine Ur Phencyclidine Scrn Ur Amphetamines Screen U Benzodiazepines Scrn U Oth Cocaine Metabols U Cannabinoids Screen Alcohol, Quantitative 10/07/18 10/07/18 10/07/18 00:26 00:26 00:26 WBC RBC Hgb Hct MCV MCH MCHC RDW Plt Count MPV Neut % (Auto) Lymph % (Auto) [place] % (Auto) Eos % (Auto) Baso % (Auto) Lymph # (Auto) [place] # (Auto) Eos # (Auto) Baso # (Auto) Absolute Neuts (auto) Sodium 139 Potassium 3.8 Chloride 108 H Carbon Dioxide 24 Anion Gap 11 BUN 13 Creatinine 0.6 L Est GFR ( Amer) > 60 Est GFR (Non-Af Amer) > 60 POC Glucose (mg/dL) Random Glucose 96 Calcium 9.1 Total Bilirubin 0.2 AST 24 ALT 24 Alkaline Phosphatase 80 Total Protein 7.8 Albumin 3.9 Globulin 3.9 Albumin/Globulin Ratio 1.0 L Urine Color Urine Appearance Urine pH Ur Specific [place] Urine Protein Urine Glucose (UA) Urine Ketones Urine Blood Urine Nitrate Urine Bilirubin Urine Urobilinogen Ur Leukocyte Esterase Salicylates < 1 L Urine Opiates Screen Negative Urine Methadone Screen Negative Acetaminophen < 10.0 L Ur Barbiturates Screen Negative Carbamazepine Ur Phencyclidine Scrn Negative Ur Amphetamines Screen Negative U Benzodiazepines Scrn Negative U Oth Cocaine Metabols Negative U Cannabinoids Screen Negative Alcohol, Quantitative 10/07/18 10/07/18 00:26 00:26 WBC RBC Hgb Hct MCV MCH MCHC RDW Plt Count MPV Neut % (Auto) Lymph % (Auto) [place] % (Auto) Eos % (Auto) Baso % (Auto) Lymph # (Auto) [place] # (Auto) Eos # (Auto) Baso # (Auto) Absolute Neuts (auto) Sodium Potassium Chloride Carbon Dioxide Anion Gap BUN Creatinine Est GFR ( Amer) Est GFR (Non-Af Amer) POC Glucose (mg/dL) Random Glucose Calcium Total Bilirubin AST ALT Alkaline Phosphatase Total Protein Albumin Globulin Albumin/Globulin Ratio Urine Color Urine Appearance Urine pH Ur Specific [place] Urine Protein Urine Glucose (UA) Urine Ketones Urine Blood Urine Nitrate Urine Bilirubin Urine Urobilinogen Ur Leukocyte Esterase Salicylates Urine Opiates Screen Urine Methadone Screen Acetaminophen Ur Barbiturates Screen Carbamazepine < 3 L Ur Phencyclidine Scrn Ur Amphetamines Screen U Benzodiazepines Scrn U Oth Cocaine Metabols U Cannabinoids Screen Alcohol, Quantitative < 10 - EKG Data EKG Interpreted by: ER Physician EKG shows normal: Sinus rhythm DSM Plan - DSM 5 DSM 5 Diagnosis: Bipolar disorder most likely type I, mixed, severe, no psychosis Rule out mood disorder due to general medical condition Seizure disorder Rule out pseudoseizures - Recommended/Plan of Treatment Treatment Recommendations and Plan of Treatment: Milieu/structure/supportive therapy SW consultation for discharge plan and social issues, collaterals pharmacy was contacted, meds resumed abilify was resumed 5mg po bid as needed medications ambien as needed for insomnia Neurology consultation Medical consult Med management: Family involvement Follow up on labs Will monitor closely Pt was educated about risk/benefits and alternatives of medications, coping strategies (safety plan, suicide prevention), relapse prevention, importance of follow up with psychiatrist and therapist, stay away from drugs/alcohol/smoking Projected ELOS: 7 days Prognosis: Fair Discharge Plan and Discharge Criteria: Pt will be not depressed or manic, will be more hopeful, will be not psychotic or anxious, will be tolerating medications well, will not have major side effects, will be able to function, will not pose threat to self or others. - Tobacco Cessation Tobacco Use Status for the last 30 days: Non User Tobacco Use Treatment Practical Counseling Provided: No Tobacco Use Treatment FDA-Approved Cessation Medication Provided: No - Alcohol or Substance Abuse Does the patient have an Alcohol or Substance Abuse Disorder: No Initial Psych Certification - Initial Certification I certify that the inpatient psychiatric facility admission was medically necessary for either: Treatment which could reasonbly be expected to improve pt's condition I estimate of hospitalization is necessary for proper treatment of the patient: 7 Unit of Time: Days My plans for post-hospital care for this patient are: Follow-up with her outpatient provider Dr. Lyons
--- NOTE | 2018-10-07 21:48 | CARD ---
APPROVED REPORT Date of service: 10/07/2018 EKG Measurement Heart [id number] <Conclusion> Normal sinus rhythm Normal ECG
--- NOTE | 2018-10-08 10:22 | CP.PCM.CON ---
History of Present Illness - History of Present Illness History of Present Illness: PGY-1 Neurology Consult note for Dr. Roman Consulting physician: Dr. Tilley CC: Seizures HPI: Patient is a 23 year old female with past medical history of bipolar disorder and seizures, presenting with a witnessed seizure by her mother. Patient states that she has a history of seizures and has been on anti-seizure medications for 5 years prescribed by her doctor in [place]. She states that she received four ECT treatments in [place] last year and has been doing well. She states that her last seizure was more than 1 year ago. However, she states that she has had 2 episodes of seizures this week. She is compliant with all her medications. Patient denies having a neurologist here in the [place]. She denies urinary or bowel incontinence, tongue biting, or hitting her head. She further denies any dizziness, shortness of breath, chest pain, abdominal pain, nausea, vomiting, diarrhea, or urinary symptoms. PMD: Dr. Mcacin PMhx: Bipolar disorder, seizures (diagnosed 11 years ago) PSHx: appendectomy Allergies: NKDA Meds: Abilify 30mg QD, Carbamazepine 200mg QD, Lamictal 25mg BID SocialHx: social drinker. No smoking hx. Denies recreational drug use. FamHx: History of seizures in father and paternal grandmother Past Patient History - Tetanus Immunizations Tetanus Immunization: Unknown - Past Social History Smoking Status: Unknown If Ever Smoked - CARDIAC Hx Cardiac Disorders: No Hx Hypertension: No - PULMONARY Hx Respiratory Disorders: No Hx Tuberculosis: No - NEUROLOGICAL Hx Neurological Disorder: No HX Cerebrovascular Accident: No Hx Seizures: Yes - HEENT Hx HEENT Problems: No - RENAL Hx Chronic Kidney Disease: No - ENDOCRINE/METABOLIC Hx Endocrine Disorders: Yes Hx Diabetes Mellitus Type 2: Yes - HEMATOLOGICAL/ONCOLOGICAL Hx Cancer: No - INTEGUMENTARY Hx Dermatological Problems: No - MUSCULOSKELETAL/RHEUMATOLOGICAL Hx Musculoskeletal Disorders: No - GASTROINTESTINAL Hx Gastrointestinal Disorders: No - GENITOURINARY/GYNECOLOGICAL Hx Genitourinary Disorders: No Hx Sexually Transmitted Disorders: No - PSYCHIATRIC Hx Bipolar Disorder: Yes Hx Substance Use: No - SURGICAL HISTORY Hx Surgeries: No (denies) - ANESTHESIA Hx Anesthesia: No Meds Allergies/Adverse Reactions: Allergies Allergy/AdvReac Type Severity Reaction Status Date / Time No Known Allergies Allergy Verified 10/07/18 06:11 - Medications Medications: Current Medications Acetaminophen (Tylenol 325mg Tab) 650 mg PO Q4H PRN PRN Reason: Pain, Mild (1-3) Al Hydrox/Mg Hydrox/Simethicone (Maalox Plus 30 Ml) 30 ml PO DAILY PRN PRN Reason: Upset Stomach Aripiprazole (Abilify) 5 mg PO BID [facility] Last Admin: 10/07/18 15:31 Dose: 5 mg Benztropine Mesylate (Cogentin) 0.5 mg PO BID [facility] Last Admin: 10/07/18 15:31 Dose: 0.5 mg Carbamazepine (Tegretol) 200 mg PO DAILY [facility]; Protocol Last Admin: 10/07/18 15:31 Dose: 200 mg Lamotrigine (Lamictal) 25 mg PO BID [facility]; Protocol Last Admin: 10/07/18 15:31 Dose: 25 mg Lorazepam (Ativan) 2 mg PO Q6H PRN; Protocol PRN Reason: Agitation Lorazepam (Ativan) 2 mg IM Q6H PRN; Protocol PRN Reason: Agitation Magnesium Hydroxide (Milk Of Magnesia) 30 ml PO DAILY PRN PRN Reason: Constipation Ziprasidone (Geodon Cap) 20 mg PO Q6H PRN; Protocol PRN Reason: Agitation Ziprasidone (Geodon Inj) 20 mg IM Q6H PRN; Protocol PRN Reason: Agitation Zolpidem Tartrate (Ambien) 5 mg PO HS PRN; Protocol PRN Reason: Insomnia Physical Exam - Additional Findings Additional findings: - Constitutional Appears: No Acute Distress - Head Exam Head Exam: ATRAUMATIC, NORMAL INSPECTION, NORMOCEPHALIC - Eye Exam Eye Exam: EOMI, Normal appearance, PERRL Pupil Exam: NORMAL ACCOMODATION - ENT Exam ENT Exam: Mucous Membranes Moist - Respiratory Exam Respiratory Exam: Clear to Auscultation Bilateral, NORMAL BREATHING PATTERN. absent: Accessory Muscle Use, Chest Wall Tenderness, Rales, Rhonchi, Wheezes - Cardiovascular Exam Cardiovascular Exam: REGULAR RHYTHM, +S1, +S2. absent: Systolic Murmur - GI/Abdominal Exam GI & Abdominal Exam: Normal Bowel Sounds, Soft. absent: Tenderness - Extremities Exam Extremities exam: Positive for: normal capillary refill, normal inspection, pedal pulses present - Neurological Exam Neurological exam: Alert, CN II-XII Intact, Normal Gait, Oriented x3, Reflexes Normal - Psychiatric Exam Psychiatric exam: Normal Affect, Normal Mood - Skin Skin Exam: Dry, Intact, Normal Color, Warm Results - Vital Signs Recent Vital Signs: Last Vital Signs Temp 97.4 F L 10/08/18 07:00 Pulse 80 10/08/18 07:00 Resp 80 H 10/08/18 07:00 BP 106/61 10/08/18 07:00 Pulse Ox 100 10/07/18 04:30 - Labs Result Diagrams: 10/07/18 00:26 10/07/18 00:26 Labs: Laboratory Results - last 24 hr 10/07/18 08:30 RPR Nonreactive Assessment & Plan - Assessment and Plan (Free Text) Assessment: Patient is a 23 year old female with past medical history of bipolar disorder and seizures, admitted to psychiatry unit for mood disorder. Neurology was consulted for seizures. Plan: - EEG: pending - Increase dose to Lamictal 100mg BID - Will taper down Carbamazepine- 100mg on 10/09, 50mg on 10/10, and discontinue - Follow up with Dr. Roman in her office in 2-4 weeks - Further recommendations as per Dr. Roman Patient seen and case discussed with attending, Dr. Abel Gil, PGY-1
--- NOTE | 2018-10-08 11:43 | CP.PCM.CON ---
<Won Og - Last Filed: 10/08/18 11:35> History of Present Illness - History of Present Illness History of Present Illness: Won Og, PGY1 Medicine Consult Note for Dr. Nicholas Patient is a 23 y/o F with PMHx Bipolar disorder and seizures (diagnosed 11 years ago) who presented to [facility] for witnessed seizure by family member. Patient was admitted to the psych department at the time for stabilization of mood symptoms due to her hx of bipolar disorder. She was not in any acute distress. During hospital course, psychiatry asked for medical consult given patient's seizures. Medical team evaluated patient in the psychiatric department. She says her mom witnessed her seizure episode upon this admission. She claims her twitching (involving upper and lower extremities) happened for about one hour in duration. A previous episode like this happened about 1 year ago as well. Patient does not follow up with a neurologist. She says her episodes usually occur once a year. She does not drive and does not have a job. She lives with her mother in [place]. Currently she denies cp, sob, n/v/d, fever, chills, lightheadedness, dizziness. No tongue biting, bowel/bladder incontinence, drug use. She has a PMD in [place]. A full 12 point ROS was conducted and unremarkable except as stated above. PMD: Dr. Mccain PMhx: Bipolar disorder, seizures (diagnosed 11 years ago) PSHx: denies Allergies: NKDA Meds: abilify, cogentin, lamictal SocialHx: social drinker. No smoking hx. Denies recreational drug use. FamHx: non-contributory Review of Systems - Review of Systems All systems: reviewed and no additional remarkable complaints except (as per HPI.) Past Patient History - Tetanus Immunizations Tetanus Immunization: Unknown - Past Social History Smoking Status: Unknown If Ever Smoked - CARDIAC Hx Cardiac Disorders: No Hx Hypertension: No - PULMONARY Hx Respiratory Disorders: No Hx Tuberculosis: No - NEUROLOGICAL Hx Neurological Disorder: No HX Cerebrovascular Accident: No Hx Seizures: Yes - HEENT Hx HEENT Problems: No - RENAL Hx Chronic Kidney Disease: No - ENDOCRINE/METABOLIC Hx Endocrine Disorders: Yes Hx Diabetes Mellitus Type 2: Yes - HEMATOLOGICAL/ONCOLOGICAL Hx Cancer: No - INTEGUMENTARY Hx Dermatological Problems: No - MUSCULOSKELETAL/RHEUMATOLOGICAL Hx Musculoskeletal Disorders: No - GASTROINTESTINAL Hx Gastrointestinal Disorders: No - GENITOURINARY/GYNECOLOGICAL Hx Genitourinary Disorders: No Hx Sexually Transmitted Disorders: No - PSYCHIATRIC Hx Bipolar Disorder: Yes Hx Substance Use: No - SURGICAL HISTORY Hx Surgeries: No (denies) - ANESTHESIA Hx Anesthesia: No Meds Allergies/Adverse Reactions: Allergies Allergy/AdvReac Type Severity Reaction Status Date / Time No Known Allergies Allergy Verified 10/07/18 06:11 - Medications Medications: Current Medications Acetaminophen (Tylenol 325mg Tab) 650 mg PO Q4H PRN PRN Reason: Pain, Mild (1-3) Al Hydrox/Mg Hydrox/Simethicone (Maalox Plus 30 Ml) 30 ml PO DAILY PRN PRN Reason: Upset Stomach Aripiprazole (Abilify) 5 mg PO BID [facility] Last Admin: 10/08/18 10:50 Dose: 5 mg Benztropine Mesylate (Cogentin) 0.5 mg PO BID [facility] Last Admin: 10/08/18 10:50 Dose: 0.5 mg Carbamazepine (Tegretol) 200 mg PO DAILY [facility]; Protocol Last Admin: 10/08/18 10:49 Dose: 200 mg Lamotrigine (Lamictal) 25 mg PO BID [facility]; Protocol Last Admin: 10/08/18 10:49 Dose: 25 mg Lorazepam (Ativan) 2 mg PO Q6H PRN; Protocol PRN Reason: Agitation Lorazepam (Ativan) 2 mg IM Q6H PRN; Protocol PRN Reason: Agitation Magnesium Hydroxide (Milk Of Magnesia) 30 ml PO DAILY PRN PRN Reason: Constipation Ziprasidone (Geodon Cap) 20 mg PO Q6H PRN; Protocol PRN Reason: Agitation Ziprasidone (Geodon Inj) 20 mg IM Q6H PRN; Protocol PRN Reason: Agitation Zolpidem Tartrate (Ambien) 5 mg PO HS PRN; Protocol PRN Reason: Insomnia Physical Exam - Constitutional Appears: No Acute Distress - Head Exam Head Exam: ATRAUMATIC, NORMAL INSPECTION, NORMOCEPHALIC - Eye Exam Eye Exam: EOMI, Normal appearance, PERRL Pupil Exam: NORMAL ACCOMODATION - ENT Exam ENT Exam: Mucous Membranes Moist - Respiratory Exam Respiratory Exam: Clear to Auscultation Bilateral, NORMAL BREATHING PATTERN. absent: Accessory Muscle Use, Chest Wall Tenderness, Rales, Rhonchi, Wheezes - Cardiovascular Exam Cardiovascular Exam: REGULAR RHYTHM, +S1, +S2. absent: Systolic Murmur - GI/Abdominal Exam GI & Abdominal Exam: Normal Bowel Sounds, Soft. absent: Tenderness - Extremities Exam Extremities exam: Positive for: normal capillary refill, normal inspection, pedal pulses present - Back Exam Back exam: NORMAL INSPECTION - Neurological Exam Neurological exam: Alert, CN II-XII Intact, Normal Gait, Oriented x3, Reflexes Normal - Psychiatric Exam Psychiatric exam: Normal Affect, Normal Mood - Skin Skin Exam: Dry, Intact, Normal Color, Warm Results - Vital Signs Recent Vital Signs: Last Vital Signs Temp 97.4 F L 10/08/18 07:00 Pulse 80 10/08/18 07:00 Resp 80 H 10/08/18 07:00 BP 106/61 10/08/18 07:00 Pulse Ox 100 10/07/18 04:30 - Labs Result Diagrams: 10/07/18 00:26 10/07/18 00:26 Labs: Laboratory Results - last 24 hr 10/07/18 08:30 RPR Nonreactive Assessment & Plan - Assessment and Plan (Free Text) Assessment: Patient is a 23 y/o F with PMHx Bipolar disorder and seizures (diagnosed 11 years ago) who presented to [facility] for witnessed seizure by family member. Patient was admitted to psych unit for mood disorder. Medical team consulted for seizures. Plan: Psychomotor Seizure - c/w current antiepileptic regimen - Patient should follow up with her neurologist as outpatient - Neurology (Dr. Roman) is on consult. Further recommendations from Neurologist. - Head CT (10/07): no acute findings - No evidence of infection on labs as triggering factor for seizures - UDS negative - EtOH level negative - TSH wnl - No electrolyte abnormalities - VSS Bipolar - c/w management as per Psychiatrist Given the above findings, medical team has evaluated patient. Upon reviewing the entire case, patient is hemodynamically stable. Medical team will sign off at this time. Further recommendations as per Neurology. Thank you for the consult. Case was discussed and reviewed with Attending Physician, Dr. Nicholas. <Alpa Nicholas - Last Filed: 10/08/18 17:04> Meds - Medications Medications: Current Medications Acetaminophen (Tylenol 325mg Tab) 650 mg PO Q4H PRN PRN Reason: Pain, Mild (1-3) Last Admin: 10/08/18 14:27 Dose: 650 mg Al Hydrox/Mg Hydrox/Simethicone (Maalox Plus 30 Ml) 30 ml PO DAILY PRN PRN Reason: Upset Stomach Aripiprazole (Abilify) 10 mg PO BID [facility] Last Admin: 10/08/18 15:42 Dose: 10 mg Benztropine Mesylate (Cogentin) 0.5 mg PO BID [facility] Last Admin: 10/08/18 15:43 Dose: 0.5 mg Carbamazepine (Tegretol) 100 mg PO ONCE ONE; Protocol Stop: 10/09/18 08:01 Carbamazepine (Tegretol) 50 mg PO ONCE ONE; Protocol Stop: 10/10/18 08:01 Lamotrigine (Lamictal) 100 mg PO BID [facility]; Protocol Lorazepam (Ativan) 2 mg PO Q6H PRN; Protocol PRN Reason: Agitation Lorazepam (Ativan) 2 mg IM Q6H PRN; Protocol PRN Reason: Agitation Magnesium Hydroxide (Milk Of Magnesia) 30 ml PO DAILY PRN PRN Reason: Constipation Ziprasidone (Geodon Cap) 20 mg PO Q6H PRN; Protocol PRN Reason: Agitation Ziprasidone (Geodon Inj) 20 mg IM Q6H PRN; Protocol PRN Reason: Agitation Zolpidem Tartrate (Ambien) 5 mg PO HS PRN; Protocol PRN Reason: Insomnia Results - Vital Signs Recent Vital Signs: Last Vital Signs Temp 97.4 F L 10/08/18 07:00 Pulse 78 10/08/18 16:00 Resp 80 H 10/08/18 07:00 BP 111/61 10/08/18 16:00 Pulse Ox 100 10/07/18 04:30 - Labs Result Diagrams: 10/07/18 00:26 10/07/18 00:26 Labs: Laboratory Results - last 24 hr 10/07/18 08:30 RPR Nonreactive Attending/Attestation - Attestation I have personally seen and examined this patient.: Yes I have fully participated in the care of the patient.: Yes I have reviewed all pertinent clinical information: Yes Notes (Text): 10/08/18 16:51 Attending note; Patient seen and examined with resident and psychiatric floor. Patient is alert and awake. Denies any chest pain, shortness of breath. denies any abdominal pain, nausea, vomiting. Tolerating diet. Ambulating fine. Patient is a 23 year old female with PMHx Bipolar disorder and seizures (diagnosed 11 years ago) who presented to [facility] for witnessed seizure by family member. Patient was admitted to the psych department at the time for stabilization of mood symptoms due to her hx of bipolar disorder. She was not in any acute distress. 1. Seizure disorder; patient did not have a tongue bite, urinary, bowel incontinence. Continue Lamictal. Neurology evaluation Recommended. 2. bipolar Disorder; continue medication per psychiatrist. Lab work reviewed. Patient is clinically stable. Please reconsult as needed . Patient can follow-up with PMD in [place] upon discharge.
--- NOTE | 2018-10-08 14:31 | PCM.PYCHPN ---
Psychiatric Progress Note - Psychiatric Progress Note Patient seen today, length of contact: 30min Patient Chief Complaint: "I do not want to be here, you have to discharge me immediately, transfer me on the medical floor...." Problems Identified/Issues Discussed: Suicide/ homicide prevention, past psychiatric h/o, current psychiatric symptoms, medical problems, risk/benefits and alternatives of medications, medications compliance, coping strategies, substance abuse h/o, relapse prevention, importance of follow up with psychiatrist and therapist, discharge plan. Medical Problems: possible seizure disorder Diagnostic Results: 10/07/18 00:26 10/07/18 00:26 Lab Results 10/07/18 08:30: RPR Nonreactive 10/07/18 08:30: TSH 3rd Generation 3.77 10/07/18 08:30: Fasting Glucose 90, Triglycerides 84, Cholesterol 134, LDL Cholesterol Direct 84, HDL Cholesterol 32 10/07/18 00:26: Carbamazepine < 3 L 10/07/18 00:26: Alcohol, Quantitative < 10 10/07/18 00:26: Salicylates < 1 L, Acetaminophen < 10.0 L 10/07/18 00:26: Urine Opiates Screen Negative, Urine Methadone Screen Negative, Ur Barbiturates Screen Negative, Ur Phencyclidine Scrn Negative, Ur Amphetamines Screen Negative, U Benzodiazepines Scrn Negative, U Oth Cocaine Metabols Negative, U Cannabinoids Screen Negative 10/07/18 00:26: Sodium 139, Potassium 3.8, Chloride 108 H, Carbon Dioxide 24, Anion Gap 11, BUN 13, Creatinine 0.6 L, Est GFR ( Amer) > 60, Est GFR (Non-Af Amer) > 60, Random Glucose 96, Calcium 9.1, Total Bilirubin 0.2, AST 24, ALT 24, Alkaline Phosphatase 80, Total Protein 7.8, Albumin 3.9, Globulin 3.9, Albumin/Globulin Ratio 1.0 L 10/07/18 00:26: Urine Color Yellow, Urine Appearance Clear, Urine pH 7.5, Ur Specific [place] 1.025, Urine Protein Negative, Urine Glucose (UA) Negative, Urine Ketones Negative, Urine Blood Negative, Urine Nitrate Negative, Urine Bilirubin Negative, Urine Urobilinogen 0.2, Ur Leukocyte Esterase Negative 10/07/18 00:26: WBC 8.5, RBC 4.92, Hgb 12.1, Hct 39.2, MCV 79.7 L D, MCH 24.6 L, MCHC 30.9 L, RDW 13.6, Plt Count 235, MPV 10.9, Neut % (Auto) 62.0, Lymph % (Auto) 29.2, Prentiss % (Auto) 5.4, Eos % (Auto) 3.0, Baso % (Auto) 0.4, Lymph # (Auto) 2.5, Prentiss # (Auto) 0.5, Eos # (Auto) 0.3, Baso # (Auto) 0.03, Absolute Neuts (auto) 5.24 10/06/18 23:49: POC Glucose (mg/dL) 99 Vital Signs Temp Pulse Resp BP Pulse Ox 10/08/18 07:00 97.4 F L 80 80 H 106/61 10/07/18 16:00 79 117/67 10/07/18 07:00 97.7 F 84 20 125/91 H 10/07/18 06:16 20 10/07/18 04:30 80 18 128/72 100 10/07/18 03:40 75 18 125/75 100 10/06/18 23:48 98.6 F 77 18 139/79 98 DSM 5 Symptoms Update: Shortly, patient is 23-year-old [place] female with a history of bipolar disorder and history of "seizures", was brought in by her family for evaluation of possible seizure episode, as per report patient was admitted to the psychiatric inpatient unit for evaluation and stabilization of mood symptoms as well as possible ECT treatment. pt was seen at the treatment team meeting, pt presented with poor personal hygiene, has uncombed hair, seems to be irritable, annoyed. Patient reported that she does not want to stay in the hospital, patient reported that she feels well, patient denied thoughts of harming herself or others. The same time patient presented to be disorganized, with her thought process, pt is easily agitated. pt could make statements such as "I was diagnosed with bipolar disorder at age of 12, because I was in love with one cassandra," was not able to explain how two facts are related. pt said that she had ECT treatment in [place] because of "my b ipolar and my seizures." collaterals 10/07/18 "SW contacted pt's mother, Ruddy Quintero([phone] via [employer] supercharge repair supervisor, ID#[id number]. Pt's mother reports she contacted EMS due patient looking at her in a bizarre manner, pt's mouth being crooked, and patient having difficulty with talking. Pt's mother reports patient's presentation appeared to be seizures. Patient's mother reports patient presented with same 2 other times this week, 2x additional times this month and once while patient was in college. Patient's mother reports believes patient's presentation is related to the "electricity" coming from the phone and hurting the patient's head, as pt is constantly on the phone for work and with her friends. Patient's mother reports patient went to a doctor in [place], [place] two days ago and was informed patient has a blood clot causing patient to have seizures. Patient informed if the blood clot does not dissolve, patient may become paralyzed on her left side. Pt's mother reports pt's doctor suggested for patient to have ECT is dissolve the blood clot. Patient's mother reports patient wanted to go to [place] to have the procedure. Patient's mother reports patient also have "problems" and was recommended to see a therapist. SW asked about pt's stressors. Pt's mother appeared hesitant to disclose information and stated she would tell this marketing copywriter during visiting hours. SW informed pt's mother this marketing copywriter will not be present during visiting hours and to disclose information now. Patient's mother put this marketing copywriter on a prolonged hold, resulting in the phone call being discontinued. As per [employer] supercharge repair supervisor, ID#[id number], patient's mother may have not wanted to disclose information with a male present due to cultural [place] norms. " this marketing copywriter asked about the "electricity" coming from the cellphone her mother mentioned, pt said that she was working long hours at work in [place] and she thought that it could affect her. this wrier also asked about "blood clot" causing pt to have seizures, pt said that her mother does not understand Korean, but SW used translation line. as per pharmacy report pt filled Abilify last summer, pt said that she took 6months supply in order to go to [place]. pt reported being compliant with abilify 30mg. yesterday pt was agitated, needed to be medicated with Ativan IM. so far pt tolerates meds well, no side effects observed or reported. AIMS 0, no EPS. Impression: bipolar disorder I, severe with psychosis h/o seizure disorder Medication Change: Yes (abilify incresed) Medical Record Reviewed: Yes Consults ordered or reviewed: medical consult neurology consult Mental Status Examination - Cognitive Function Orientation: Person, Place, Situation, Time Memory: Impaired Attention: Poor Concentration: Poor Association: Loose Fund of Knowledge: Poor - Mood Mood: Depressed, Anxious - Affect Affect: Constricted (Angry), Flat - Formal Thought Process Formal Thought Process: Circumstantial (mildly disorganized) - Suicidal Ideation Suicidal Ideation: No - Homicidal Ideation Homicidal Ideation: No Goal/Treatment Plan - Goal/Treatment Plan Need for Continued Stay: Remain at risks for inpatient hospitalization, Severe depression anxiety, Discharge may exacerbated symptoms, Severe functional impairment Progress Toward Problem(s) and Goals/Treatment Plan: Milieu/structure/supportive therapy SW consultation for discharge plan and social issues, collaterals pharmacy was contacted, meds resumed Lamictal 25mg po bid filled in June carbamazepine 200mg daily benztropine 0.5mg bid 90days supply abilify was increased 20mg daily (pt was on 30mg daily) as needed medications ambien as needed for insomnia Neurology consultation Medical consult Med management: Family involvement Follow up on labs Will monitor closely Pt was educated about risk/benefits and alternatives of medications, coping strategies (safety plan, suicide prevention), relapse prevention, importance of follow up with psychiatrist and therapist, stay away from drugs/alcohol/smoking pt submitted 48hr notice, will screen pt by [facility] for involuntary commitment Estimated Date of D/C: 10/14/18
[2018-10-09 07:26] VITALS: BP 105/56; PULSE 87; RESP 20; TEMP 97.7
--- NOTE | 2018-10-09 09:48 | PCM.PYCHDC ---
Mental Status Examination - Mental Status Examination Memory: Intact Mood: Neutral Affect: Constricted Speech: Appropriate Attention: WNL Concentration: Poor Association: WNL Fund of Knowledge: WNL Formal Thought Process: No Impairment (none noted at time of discharge) Description of patient's judgement and insight: poor i/J Psychotic Thoughts and Behaviors: Patient denied AVH or paranoia. No overt delusions were elicited Suicidal Ideation: No Current Homicidal Ideation?: No Discharge Summary - Discharge Note Reason for Hospitalization: Shortly, patient is 23-year-old American female with a history of bipolar disorder and history of "seizures", was brought in by her family for evaluation of possible seizure episode, as per report patient was admitted to the psychiatric inpatient unit for evaluation and stabilization of mood symptoms as well as possible ECT treatment. Psychiatric History (includes Medical, Family, Personal Hx): See HPI Laboratory Data: Laboratory Tests 10/06/18 10/07/18 10/07/18 23:49 00:26 00:26 WBC 8.5 RBC 4.92 Hgb 12.1 Hct 39.2 MCV 79.7 L D MCH 24.6 L MCHC 30.9 L RDW 13.6 Plt Count 235 MPV 10.9 Neut % (Auto) 62.0 Lymph % (Auto) 29.2 [place] % (Auto) 5.4 Eos % (Auto) 3.0 Baso % (Auto) 0.4 Lymph # (Auto) 2.5 [place] # (Auto) 0.5 Eos # (Auto) 0.3 Baso # (Auto) 0.03 Absolute Neuts (auto) 5.24 Sodium Potassium Chloride Carbon Dioxide Anion Gap BUN Creatinine Est GFR ( Amer) Est GFR (Non-Af Amer) POC Glucose (mg/dL) 99 Random Glucose Fasting Glucose Calcium Total Bilirubin AST ALT Alkaline Phosphatase Total Protein Albumin Globulin Albumin/Globulin Ratio Triglycerides Cholesterol LDL Cholesterol Direct HDL Cholesterol TSH 3rd Generation Urine Color Yellow Urine Appearance Clear Urine pH 7.5 Ur Specific [place] 1.025 Urine Protein Negative Urine Glucose (UA) Negative Urine Ketones Negative Urine Blood Negative Urine Nitrate Negative Urine Bilirubin Negative Urine Urobilinogen 0.2 Ur Leukocyte Esterase Negative Salicylates Urine Opiates Screen Urine Methadone Screen Acetaminophen Ur Barbiturates Screen Carbamazepine Ur Phencyclidine Scrn Ur Amphetamines Screen U Benzodiazepines Scrn U Oth Cocaine Metabols U Cannabinoids Screen Alcohol, Quantitative RPR 10/07/18 10/07/18 10/07/18 00:26 00:26 00:26 WBC RBC Hgb Hct MCV MCH MCHC RDW Plt Count MPV Neut % (Auto) Lymph % (Auto) [place] % (Auto) Eos % (Auto) Baso % (Auto) Lymph # (Auto) [place] # (Auto) Eos # (Auto) Baso # (Auto) Absolute Neuts (auto) Sodium 139 Potassium 3.8 Chloride 108 H Carbon Dioxide 24 Anion Gap 11 BUN 13 Creatinine 0.6 L Est GFR ( Amer) > 60 Est GFR (Non-Af Amer) > 60 POC Glucose (mg/dL) Random Glucose 96 Fasting Glucose Calcium 9.1 Total Bilirubin 0.2 AST 24 ALT 24 Alkaline Phosphatase 80 Total Protein 7.8 Albumin 3.9 Globulin 3.9 Albumin/Globulin Ratio 1.0 L Triglycerides Cholesterol LDL Cholesterol Direct HDL Cholesterol TSH 3rd Generation Urine Color Urine Appearance Urine pH Ur Specific [place] Urine Protein Urine Glucose (UA) Urine Ketones Urine Blood Urine Nitrate Urine Bilirubin Urine Urobilinogen Ur Leukocyte Esterase Salicylates < 1 L Urine Opiates Screen Negative Urine Methadone Screen Negative Acetaminophen < 10.0 L Ur Barbiturates Screen Negative Carbamazepine Ur Phencyclidine Scrn Negative Ur Amphetamines Screen Negative U Benzodiazepines Scrn Negative U Oth Cocaine Metabols Negative U Cannabinoids Screen Negative Alcohol, Quantitative RPR 10/07/18 10/07/18 10/07/18 00:26 00:26 08:30 WBC RBC Hgb Hct MCV MCH MCHC RDW Plt Count MPV Neut % (Auto) Lymph % (Auto) [place] % (Auto) Eos % (Auto) Baso % (Auto) Lymph # (Auto) [place] # (Auto) Eos # (Auto) Baso # (Auto) Absolute Neuts (auto) Sodium Potassium Chloride Carbon Dioxide Anion Gap BUN Creatinine Est GFR ( Amer) Est GFR (Non-Af Amer) POC Glucose (mg/dL) Random Glucose Fasting Glucose 90 Calcium Total Bilirubin AST ALT Alkaline Phosphatase Total Protein Albumin Globulin Albumin/Globulin Ratio Triglycerides 84 Cholesterol 134 LDL Cholesterol Direct 84 HDL Cholesterol 32 TSH 3rd Generation Urine Color Urine Appearance Urine pH Ur Specific [place] Urine Protein Urine Glucose (UA) Urine Ketones Urine Blood Urine Nitrate Urine Bilirubin Urine Urobilinogen Ur Leukocyte Esterase Salicylates Urine Opiates Screen Urine Methadone Screen Acetaminophen Ur Barbiturates Screen Carbamazepine < 3 L Ur Phencyclidine Scrn Ur Amphetamines Screen U Benzodiazepines Scrn U Oth Cocaine Metabols U Cannabinoids Screen Alcohol, Quantitative < 10 RPR 10/07/18 10/07/18 08:30 08:30 WBC RBC Hgb Hct MCV MCH MCHC RDW Plt Count MPV Neut % (Auto) Lymph % (Auto) [place] % (Auto) Eos % (Auto) Baso % (Auto) Lymph # (Auto) [place] # (Auto) Eos # (Auto) Baso # (Auto) Absolute Neuts (auto) Sodium Potassium Chloride Carbon Dioxide Anion Gap BUN Creatinine Est GFR ( Amer) Est GFR (Non-Af Amer) POC Glucose (mg/dL) Random Glucose Fasting Glucose Calcium Total Bilirubin AST ALT Alkaline Phosphatase Total Protein Albumin Globulin Albumin/Globulin Ratio Triglycerides Cholesterol LDL Cholesterol Direct HDL Cholesterol TSH 3rd Generation 3.77 Urine Color Urine Appearance Urine pH Ur Specific [place] Urine Protein Urine Glucose (UA) Urine Ketones Urine Blood Urine Nitrate Urine Bilirubin Urine Urobilinogen Ur Leukocyte Esterase Salicylates Urine Opiates Screen Urine Methadone Screen Acetaminophen Ur Barbiturates Screen Carbamazepine Ur Phencyclidine Scrn Ur Amphetamines Screen U Benzodiazepines Scrn U Oth Cocaine Metabols U Cannabinoids Screen Alcohol, Quantitative RPR Nonreactive Consultations:: List each consultation separately and include: 1. Reason for request. 2. Findings. 3. Follow-up Consultations: Dr. Gil and Dr. Og on 10/08/18 Summary of Hospital Course include:: 1. Description of specific treatment plan utilized for patients during their course of treatmen. 2. Summarize the time- course for resolution of acute symptoms and/or regressed behaviors. 3. Describe issues identified and worked on during hospitalization. 4. Describe medication utilized. 5. Describe medical problems identified and treated. 6. Reassessment of suicide risk Summary of Hospital Course: Dr. Tilley's Progress Note 10/08/18 Shortly, patient is 23-year-old American female with a history of bipolar disorder and history of "seizures", was brought in by her family for evaluation of possible seizure episode, as per report patient was admitted to the sychiatric inpatient unit for evaluation and stabilization of mood symptoms as well as possible ECT treatment. pt was seen at the treatment team meeting, pt presented with poor personal hygiene, has uncombed hair, seems to be irritable, annoyed. Patient reported that she does not want to stay in the hospital, patient reported that she feels well, patient denied thoughts of harming herself or oth ers. The same time patient presented to be disorganized, with her thought process, pt is easily agitated. pt could make statements such as "I was diagnosed with bipolar disorder at age of 12, because I was in love with one cassandra," was not able to explain how two facts are related. pt said that she had ECT treatment in [place] because of "my bipolar and my seizures." collaterals 10/07/18 "SW contacted pt's mother, Ruddy Quintero([phone] via [employer] security operations specialist, ID#[id number]. Pt's mother reports she contacted EMS due patient looking at her in a bizarre manner, pt's mouth being crooked, and patient having difficulty with talking. Pt's mother reports patient's presentation appeared to be seizures. Patient's mother reports patient presented with same 2 other times this week, 2x additional times this month and once while patient was in college. Patient's mother reports believes patient's presentation is related to the "electricity" coming from the phone and hurting the patient's head, as pt is constantly on the phone for work and with her friends. Patient's mother reports patient went to a doctor in [place], [place] two days ago and was informed patient has a blood clot causing patient to have seizures. Patient informed if the blood clot does not dissolve, patient may become paralyzed on her left side. Pt's mother reports pt's doctor suggested for patient to have ECT is dissolve the blood clot. Patient's mother reports patient wanted to go to [place] to have the procedure. Patient's mother reports patient also have "problems" and was recommended to see a therapist. SW asked about pt's stressors. Pt's mother appeared hesitant to disclose information and stated she would tell this check writer during visiting hours. SW informed pt's mother this check writer will not be present during visiting hours and to disclose information now. Patient's mother put this check writer on a prolonged hold, resulting in the phone call being discontinued. As per [employer] security operations specialist, ID#[id number], patient's mother may have not wanted to disclose information with a male present due to cultural American norms. " this check writer asked about the "electricity" coming from the cellphone her mother mentioned, pt said that she was working long hours at work in [place] and she thought that it could affect her. this wrier also asked about "blood clot" causing pt to have seizures, pt said that her mother does not understand [place], but SW used translation line. as per pharmacy report pt filled Abilify last summer, pt said that she took 6months supply in order to go to [place]. pt reported being compliant with abilify 30mg. yesterday pt was agitated, needed to be medicated with Ativan IM. so far pt tolerates meds well, no side effects observed or reported. AIMS 0, no EPS. Dr. Vazquez's Discharge Note 10/09/18 Patient was evaluated by [facility] screeners who determined that patient did not meet criteria for involuntary commitment. Patient discharged today AMA on her 48 hour notice. I met with her at bedside and she is fairly calm and cooperative. Oriented x3. Overt delusions were not elicited. Patient reports that she is doing better and thus wants to go home. She is a little guarded and superficial but not notably disorganized, threatening or actively hallucinating. Patient informed that she is being discharged AMA on her 48 hour letter and she expressed understanding. - Final Diagnosis (DSM 5) Condition upon Discharge: GUARDED DSM 5: bipolar disorder I, severe with psychosis h/o seizure disorder Disposition: AGAINST MEDICAL ADVICE Follow-up Treatment Plan: Milieu/structure/supportive therapy Lamictal 25mg po bid filled in June carbamazepine 200mg daily benztropine 0.5mg bid 90days supply abilify was increased 20mg daily (pt was on 30mg daily) ambien as needed for insomnia Neurology consultation Medical consult pt submitted 48hr notice, will screen pt by [facility] for involuntary commitment - Smoking Cessation Smoking Cessation Medication prescribed: No - Antipsychotic Medications Pt discharged on 2 or more routine antipsychotic medications: No
== END 2018-10-09 11:50 | disposition left against medical advice (07) | DRG 753 ==
LOC: ED 23:39 → ERH 10-07 03:45 → PSYC 10-07 05:46
PROVIDERS: ADMIT Psychiatry & Neurology Psychiatry; ATTEND Psychiatry & Neurology Psychiatry
DX: F31.9 Bipolar disorder, unspecified (principal); F29 Unspecified psychosis not due to a substance or known physiological condition; G40.909 Epilepsy, unspecified, not intractable, without status epilepticus